=== PATIENT | female | born 1935 | race Caucasian/White ===

== ENCOUNTER → 2016-11-30 | Outpatient (CLI) | payer BC ==
--- NOTE | 2016-11-30 11:22 | KCIC ---
Bone mineral density exam History: Postmenopausal, age-related bone loss, takes calcium supplement, family history of osteoporosis, hysterectomy Comparison: None Findings: Bone mineral density examination utilizing DEXA was performed. Left hip bone mineral density of 0.868 g/cm2 corresponds with a T score -0.6, Z score 1.5. The bone mineral density of the lumbar spine was 1.174 g/cm2 which corresponds with a T-score of 1.2, Z score 3.9. By [employer] on Osteoporosis criteria, a T score of 0 to-1 SD is considered to be within normal limits. A T score of -1 to -2.5 SD is considered osteopenia. A T score less than -2.5 SD is considered osteoporosis Impression: 1. There is normal bone density of the left hip and lumbar spine. Electronically signed by: Davonte Manning MD (11/30/2016 11:18 AM) [facility]
== END | disposition home or self-care (01) ==
LOC: KCIC DEXA 10:22
PROVIDERS: ATTEND Family Medicine
DX: M85.88 Other specified disorders of bone density and structure, other site (principal)
CPT/HCPCS: 77080